=== PATIENT | female | born 1950 | race Caucasian/White ===

== ENCOUNTER 2018-05-20 02:46 | Inpatient (IN) | payer MEDICARE, MEDICAID ==
[2018-05-20 03:46] LABS: ALT (SGPT) 28 U/L (8-55); AST (SGOT) 33 U/L (5-34); Albumin 4.1 g/dL (3.4-4.8); Alkaline Phosphatase 76 U/L (40-150); Anion Gap 20 mmol/L (10-20); BUN (Urea Nitrogen) 16 mg/dL (9.8-20.1); Bilirubin, Total 0.8 mg/dL (0.2-1.2); Calc. Creatinine Clearance 0 mL/min (70-130); Calcium 10.1 mg/dL (7.8-10.44); Carbon Dioxide 21 mmol/L (23-31); Chloride 98 mmol/L (98-107); Estimated GFR-MDRD 42; Globulin 3.5 g/dL (2.4-3.5); Glucose 270 mg/dL (80-115); Potassium 4.2 mmol/L (3.5-5.1); Protein, Total 7.6 g/dL (6.0-8.3); Sodium 135 mmol/L (136-145)
[2018-05-20 03:48] LABS: Hemoglobin 14.8 g/dL (12.0-16.0); Mean Corpuscular HGB CONC 32.3 g/dL (32.0-36.0); Mean Corpuscular Hemoglobin 29.1 pg (27.0-31.0); Mean Corpuscular Volume 90.2 fL (78.0-98.0); Mean Platelet Volume 7.9 fL (7.4-10.4); Platelet Count 263 thou/uL (130-400); RBC Distribution Width 12.4 % (11.5-14.5); White Blood Cell (WBC) Count 19.6 thou/uL (4.8-10.8)
[2018-05-20] MEDS ORDERED: Piperacillin/Tazobactam 4.5 GM VIAL ONE (03:52)
[2018-05-20 03:57] LABS: Bilirubin Negative (Negative); Blood, Urine Large (Negative); Clarity CLOUDY (Clear); Glucose, Urine (Dipstick) Negative (Negative); Leukocyte Small (Negative); Nitrite Positive (Negative); Protein, Urine (Dipstick) 100 mg/dL (Neg-Trace); Specific Gravity, Urine 1.025 (1.002-1.036); pH, Urine 5.5 (5.0-9.0)
[2018-05-20 03:59] LABS: Bacteria/HPF 4+ HPF (None Seen); RBC/HPF GREATER THAN 50-TNTC HPF (0-3)
[2018-05-20 04:00] LABS: Pathc Cast-AUWi Flag 5.78 (0-2.49)
[2018-05-20 04:03] LABS: Hyaline Casts/LPF NONE SEEN LPF (0-3 Hyaline)
[2018-05-20 04:12] LABS: Band 13 % (5-11); Eosinophils 1 % (0-10); Lymphocytes 10 % (21-51); MDiff Complete? YES; Monocytes 2 % (0-10); Neutrophil 74 % (42-75)
[2018-05-20] MEDS ORDERED: Ketorolac Tromethamine 30 MG/ML VIAL ONE (04:19)
[2018-05-20] MEDS ORDERED: hydrALAZINE 20 MG/ML VIAL SLOW IVP PRN (05:43)
[2018-05-20] MEDS ORDERED: Ondansetron ODT 4 MG TAB PO PRN ×2 (05:43)
[2018-05-20] MEDS ORDERED: HumaLOG 300 UNITS/3 ML VIAL SC PRN (05:43)
[2018-05-20] MEDS ORDERED: Dextrose 5% in Water 1,000 ML IV PRN (05:43)
[2018-05-20] MEDS ORDERED: Acetaminophen 325 MG TAB PO PRN (05:43)
[2018-05-20] MEDS ORDERED: Ondansetron PF 4 MG/2 ML Vial IVP PRN ×3 (05:43→06:04)
[2018-05-20] MEDS ORDERED: Dextrose 50% Abboject 50 ML SYRINGE SLOW IVP PRN (05:43)
--- NOTE | 2018-05-20 06:49 | HP ---
PRIMARY CARE PHYSICIAN: Dr. Payne. CHIEF COMPLAINT: Fever and redness on the abdomen. HISTORY OF PRESENT ILLNESS: Ms. Laird is a pleasant 68-year-old female who has a history of hypertension, diabetes mellitus, and obesity. She says that about 2 days ago, she started running a low-grade temperature and then she noticed that an area on her abdomen started to get red and hot. She says that by Wednesday, she noticed that her temperature was starting to creep up. Then on , she noticed that her temperature got up to as high as 100.8 and then 102. She says that she is basically confined to her home due to her morbid obesity and difficulty getting out of her house and down her stairs. She says that she called her neighbors and they called EMS in order to bring her to the hospital. She also says that she has been having loose stools and just did not feel right and has been having poor appetite. When she was evaluated in the ER, she was found to have an elevated white blood cell count as well as fever and elevated lactic acid and is being admitted for panniculitis and also had urinary tract infection as well. The patient says that she last saw Dr. Payne about 2 years ago again because she is basically house confined. She says that her neighbors bring her food by her groceries for her, and she orders other essentials through the mail. REVIEW OF SYSTEMS: All systems were reviewed and are negative except for that mentioned in history of present illness. PAST MEDICAL HISTORY: Significant for hypertension, diabetes mellitus, hyperlipidemia, hypothyroidism, fibromyalgia, arthritis, and depression as well as morbid obesity. PAST SURGICAL HISTORY: She had a cholecystectomy in 1994 and then she says she developed severe ventral hernia following this. She also had a tonsillectomy in 1979. ALLERGIES: TO CYMBALTA, WHICH CAUSES HER LEG TO HURT AND ALSO LYRICA CAUSES HER FEET TO SWELL. SOCIAL HISTORY: She is a nonsmoker and nondrinker. She is single. She does not have any children. She currently lives alone. She used to live with her brother, but he recently and then also her sister recently . She says that she would not want to be resuscitated. She would like to be a DNAR. FAMILY HISTORY: Significant for brother who of heart attack, coronary artery disease. He also had end-stage renal disease, on dialysis. Her sister had a pacemaker, a defibrillator, and other heart disease. CURRENT MEDICATIONS: Her current medications are taken from the emergency room records include; 1. Amlodipine 5 mg once a day. 2. Aspirin 81 mg daily. 3. Losartan/hydrochlorothiazide 100/12.5 mg daily. 4. Metformin 1000 mg twice a day. 5. Potassium chloride 10 mEq twice a day. 6. Glipizide 5 mg daily. 7. Hydralazine 10 mg twice a day. 8. Levothyroxine 175 mcg once daily. 9. Crestor 40 mg once a day. 10. Ranitidine 150 mg daily. 11. Glucosamine complex one tablet daily. 12. Levemir 10 units once a day. 13. Acetaminophen 650 mg as needed. PHYSICAL EXAMINATION: GENERAL: She is alert and oriented. She appears to be in no acute distress. She is morbidly obese. She has truncal obesity. She does have a chronic ill appearance. VITAL SIGNS: Blood pressure 157/83, heart rate 122, respiratory rate of 24, and temperature was 99.5. HEENT: Her pupils are equal, round, and reactive. Extraocular muscles are intact. Her sclerae anicteric. Throat, no erythema, no exudates. NECK: No adenopathy. No bruits. LUNGS: Clear to auscultation. No wheezing. No rales. CARDIOVASCULAR: She has normal S1, S2. There is no S3 or S4. No murmurs, clicks, or rubs. ABDOMEN: Obese. She has a large ventral hernia, which is reducible and a massive abdominal pannus. There is no rebound or guarding. EXTREMITIES: She has no edema. No joint effusions. SKIN AND INTEGUMENT: She has some dry, thick skin and scaly on her feet and is primarily on the first toe on the right foot and on the right side of the pannus. It is erythematous and warm, but there was no fluctuance or induration. LABORATORY DATA: Sodium is 135, potassium 4.2, chloride is 98, CO2 is 21, BUN of 16, creatinine 1.27, and glucose is 270. Lactic acid 6.1. White blood cell count is 19.6, hemoglobin 14.8, hematocrit is 46, and platelet count is 263. Urinalysis is significant for positive nitrites, large blood, too numerous to count wbc's, and 4+ bacteria. ASSESSMENT: This is a pleasant 68-year-old female who presents with erythema and redness of her abdomen and likely has a panniculitis with sepsis. She also has urinary tract infection as well. 1. Panniculitis. We will place her on IV antibiotics to cover both gram positive as well as gram-negative organisms. Blood cultures have been done in the ER and we will need to follow this clinically. We will ask the nursing staff to jared the area. 2. Urinary tract infection. Again, start empiric antibiotics and await culture results. 3. Diabetes mellitus. Resume her home medications as well as sliding scale. 4. Hypertension. Restart her antihypertensive medications. We will likely restart these for tomorrow. Allow for some fluid resuscitation and treat her with p.r.n. hydralazine in the interim and also consult case management for assistance. She may benefit from home health since she appears to be basically homebound and home confined and hopefully, this will help her with disease management. Job ID: [id number]
[2018-05-20 07:19] LABS: Lactic Acid 2.3 mmol/L (0.5-2.2)
[2018-05-20] MEDS ORDERED: Vancomycin HCl 1 GM in Premix Bag 1 BAG IVPB SCH (09:00)
[2018-05-20] MEDS ORDERED: Famotidine/PF 20 mg/2ml Vial ONE (09:11)
[2018-05-20] MEDS ORDERED: Enoxaparin Sodium 30 MG/0.3 ML SYRINGE ONE (09:11)
[2018-05-20] MEDS ORDERED: Acetaminophen 325 MG TAB ONE (10:23)
[2018-05-20 14:17] VITALS: BMI 57.9
[2018-05-20] MEDS: Piperacillin/Tazobactam 3.375 GM in Sodium Chloride 0.9% 100 ML IVPB SCH ×3 (14:41→21:12)
[2018-05-20] MEDS: Famotidine 20 MG TAB PO SCH ×2 (15:38→21:13)
[2018-05-20] MEDS: Enoxaparin Sodium 30 MG/0.3 ML SYRINGE SC SCH (15:38)
[2018-05-20] MEDS: Sodium Chloride 0.9% 1,000 ML IV SCH ×2 (15:39→21:23)
[2018-05-20] MEDS: HYDROcodone/Acetaminophen 5/325 mg Tablet PO PRN ×2 (16:48→21:13)
--- NOTE | 2018-05-20 16:50 | PDOC.EVN ---
Event Note - Event Note Event Note: pt seen and examined. chart reviewed. cont IV ABx. BP better. Ok for tele floor . CM consult for placement.Pt not safe to go home rest per HPI. will follow HD stable AM labs
[2018-05-21] MEDS: Piperacillin/Tazobactam 3.375 GM in Sodium Chloride 0.9% 100 ML IVPB SCH ×4 (05:36→23:46)
[2018-05-21 06:28] LABS: #Basophils 0.1 thou/uL (0.0-0.2); #Eosinphils 0.2 thou/uL (0.0-0.7); #Monocytes 0.8 thou/uL (0.11-0.59); #Neutrophils 8.2 thou/uL (1.40-6.50); %Basophils 0.5 % (0.0-1.0); %Lymphocytes 17.5 % (21.0-51.0); %Neutrophils 73.1 % (42.0-75.0); Hemoglobin 12.5 g/dL (12.0-16.0); Mean Corpuscular Hemoglobin 30.2 pg (27.0-31.0); Mean Corpuscular Volume 91.4 fL (78.0-98.0); Mean Platelet Volume 8.2 fL (7.4-10.4); Platelet Count 187 thou/uL (130-400); RBC Distribution Width 12.4 % (11.5-14.5); Red Blood Cell (RBC) Count 4.13 mill/uL (4.20-5.40); White Blood Cell (WBC) Count 11.3 thou/uL (4.8-10.8)
[2018-05-21 06:45] LABS: Anion Gap 11 mmol/L (10-20); BUN (Urea Nitrogen) 8 mg/dL (9.8-20.1); Calc. Creatinine Clearance 152 mL/min (70-130); Calcium 9.1 mg/dL (7.8-10.44); Carbon Dioxide 27 mmol/L (23-31); Chloride 103 mmol/L (98-107); Estimated GFR-MDRD 60; Glucose 186 mg/dL (80-115); Potassium 3.4 mmol/L (3.5-5.1); Sodium 138 mmol/L (136-145)
[2018-05-21] MEDS ORDERED: Amlodipine 5 MG TAB PO SCH (09:00)
[2018-05-21] MEDS: Famotidine 20 MG TAB PO SCH ×2 (09:12→21:05)
[2018-05-21] MEDS: Enoxaparin Sodium 30 MG/0.3 ML SYRINGE SC SCH (09:12)
[2018-05-21] MEDS: Aspirin 81 mg Enteric Coated Tablet PO SCH (09:12)
[2018-05-21] MEDS: HumaLOG 300 UNITS/3 ML VIAL SC PRN ×2 (13:36→18:16)
--- NOTE | 2018-05-21 16:41 | PDOC.PN ---
- Subjective Encounter Start Date: 05/21/18 Encounter Start Time: 16:39 Pt seen for followup re: panniculitis. Says she feels slightly better. - Objective Resuscitation Status - Order Detail: 05/20/18 05:22 Resuscitation Status Routine Resuscitation Status: DNAR: NO Resuscitation Discussed with: Discussed with the patient MAR Reviewed: Yes Vital Signs & Weight: Vital Signs (12 hours) Temp Pulse Pulse Resp BP BP BP 05/21/18 13:10 97.2 F L 63 18 151/76 H 05/21/18 10:27 86 168/81 H 151/76 H 05/21/18 09:12 88 05/21/18 07:42 98.4 F 88 18 140/67 05/21/18 05:00 99.5 F 94 18 123/61 Pulse Ox 05/21/18 13:10 94 L 05/21/18 10:27 05/21/18 09:12 05/21/18 07:42 95 05/21/18 05:00 92 L Weight Weight 360 lb I&O: 05/20/18 05/21/18 05/22/18 06:59 06:59 06:59 Intake Total 3290 Output Total 2950 925 Balance 340 -925 Result Diagrams: 05/21/18 05:51 05/21/18 05:51 Additional Labs: Accuchecks 05/21/18 05/21/18 05/20/18 11:01 05:42 20:55 POC Glucose 222 H 190 H 225 H 05/20/18 17:03 POC Glucose 196 H EKG Reviewed by me: Yes (Tele: NSR) Phys Exam - Physical Examination Morbid obesity HEENT: moist MMs, sclera anicteric, oral pharynx no lesions, 2+ tonsils Neck: no nodes, no JVD, supple, full ROM Respiratory: clear to auscultation bilateral Cardiovascular: RRR, no rub S1, s2 Gastrointestinal: soft, non-tender, positive bowel sounds distended, pannus Neurological: moves all 4 limbs Psychiatric: normal affect, A&O x 3 Deviation from normal: panniculitis Dx/Plan (1) Panniculitis Code(s): M79.3 - PANNICULITIS, UNSPECIFIED Status: Acute Comment: continue IV antibiotics as below, follow cultures (2) Hypokalemia Code(s): E87.6 - HYPOKALEMIA Status: Acute Comment: replace potassium (3) UTI (urinary tract infection) Status: Acute Comment: continue IV antibiotics as below for E. coli UTI, await sensitivities (4) Moderately severe depression Code(s): F32.2 - MAJOR DEPRESSV DISORD, SINGLE EPSD, SEV W/O PSYCH FEATURES Status: Chronic Comment: stable, continue Effexor (5) Hypothyroidism Code(s): E03.9 - HYPOTHYROIDISM, UNSPECIFIED Status: Chronic Comment: continue synthroid (6) DM2 (diabetes mellitus, type 2) Status: Chronic Comment: resume home meds, continue accuchecks and insulin sliding scale (7) Morbid obesity with BMI of 50.0-59.9, adult Code(s): E66.01 - MORBID (SEVERE) OBESITY DUE TO EXCESS CALORIES; Z68.43 - BODY MASS INDEX (BMI) 50-59.9, ADULT Status: Chronic - Plan continue antibiotics, PT/OT, out of bed/ambulate * . Review of Systems - Review of Systems Constitutional: negative: fever, chills, sweats, weakness, malaise Respiratory: negative: Cough, Shortness of Breath, SOB with Excertion, Pleuritic Pain, Wheezing Cardiovascular: negative: chest pain, palpitations, orthopnea, paroxysmal nocturnal dyspnea, edema, light headedness Gastrointestinal: negative: Nausea, Vomiting, Abdominal Pain, Diarrhea, Constipation, Melena, Hematochezia Skin: Rash. negative: Lesions, Jaime, Bruising - Medications/Allergies Allergies/Adverse Reactions: Allergies Allergy/AdvReac Type Severity Reaction Status Date / Time duloxetine [From Cymbalta] Allergy Verified 05/20/18 14:25 pregabalin [From Lyrica] Allergy Verified 05/20/18 14:25 Medications: Current Medications Acetaminophen (Tylenol) 650 mg PO Q4H PRN PRN Reason: Headache/Fever/Mild Pain (1-3) Hydrocodone Bitart/Acetaminophen (Manly 5/325) 1 tab PO Q4H PRN PRN Reason: Moderate Pain (4-6) Last Admin: 05/20/18 21:13 Dose: 1 tab Amlodipine Besylate (Norvasc) 5 mg PO DAILY [facility] Last Admin: 05/21/18 09:12 Dose: 5 mg Amlodipine Besylate (Norvasc) 5 mg PO DAILY [facility] Aspirin (Ecotrin) 81 mg PO DAILY [facility] Last Admin: 05/21/18 09:12 Dose: 81 mg Aspirin (Aspirin Chewable) 81 mg PO DAILY [facility] Dextrose/Water (Dextrose 50%) 25 gm SLOW IVP PRN PRN PRN Reason: Hypoglycemia Enoxaparin Sodium (Lovenox) 30 mg SC 0900 [facility] Last Admin: 05/21/18 09:12 Dose: 30 mg Famotidine (Pepcid) 20 mg PO BID [facility] Last Admin: 05/21/18 09:12 Dose: 20 mg Glipizide (Glucotrol) 10 mg PO BID [facility] Glucagon (Glucagon) 1 mg IM PRN PRN PRN Reason: Hypoglycemia Hydralazine HCl (Apresoline) 10 mg SLOW IVP Q4H PRN PRN Reason: SBP > 180 and HR < 70 Hydralazine HCl (Apresoline) 10 mg PO BID [facility] Dextrose/Water (D5w) 1,000 mls @ 0 mls/hr IV .Q0M PRN PRN Reason: Hypoglycemia Piperacillin Sod/Tazobactam (Sod 3.375 gm/ Sodium Chloride) 100 mls @ 200 mls/ hr IVPB Q6H [facility] Last Admin: 05/21/18 11:15 Dose: 100 mls Sodium Chloride (Normal Saline 0.9%) 1,000 mls @ 75 mls/hr IV .[id number] [facility] Last Admin: 05/20/18 21:23 Dose: 1,000 mls Vancomycin HCl 2 gm/ Sodium (Chloride) 500 mls @ 200 mls/hr IVPB 0400 [facility] Last Admin: 05/21/18 04:25 Dose: 500 mls Insulin Human Lispro (Humalog) 0 units SC .MODERATE SLIDING SC PRN PRN Reason: Moderate Correctional Scale Last Admin: 05/21/18 13:36 Dose: 4 unit Insulin Human Lispro (Humalog) 0 units SC .BEDTIME SLIDING SC PRN PRN Reason: Bedtime Correctional Scale Last Admin: 05/20/18 21:17 Dose: 2 unit Levothyroxine Sodium (Synthroid) 175 mcg PO DAILY [facility]) [facility] Miscellaneous Medication (Pharmacy To Dose) 0 each IVPB ASDIR PRN PRN Reason: Pharmacy to Dose VANCOMYCIN Non-Formulary Medication (Acetaminophen [Tylenol]) 650 mg PO Q6HR [facility] Non-Formulary Medication (Glucosamine/D3/Boswellia Patricia [Glucosamine Daily Complex Tab]) 2 each PO DAILY [facility] Non-Formulary Medication (Insulin Detemir [Levemir Flextouch]) 10 unit SQ HS [facility] Non-Formulary Medication (Losartan/Hydrochlorothiazide [Losartan-Hctz 100-12.5 Mg Tab]) 1 tablet PO DAILY [facility] Non-Formulary Medication (Potassium Chloride [Potassium Chloride]) 10 meq PO BID [facility] Non-Formulary Medication (Ranitidine Hcl [Ranitidine Hcl]) 150 mg PO BID [facility] Non-Formulary Medication (Rosuvastatin Calcium [Crestor]) 40 mg PO DAILY [facility] Non-Formulary Medication (Venlafaxine Hcl [Venlafaxine Hcl Er]) 150 mg PO DAILY [facility] Ondansetron HCl (Zofran Odt) 4 mg PO Q6H PRN PRN Reason: Nausea/Vomiting Ondansetron HCl (Zofran) 4 mg IVP Q6H PRN PRN Reason: Nausea/Vomiting Pneumococcal 13-Valent Conj Vacc (Prevnar) 0.5 ml IM .ONCE ONE Stop: 05/22/18 09:01 Venlafaxine HCl (Effexor Xr) 150 mg PO ONE [facility]
[2018-05-21] MEDS ORDERED: Potassium Chloride 20 MEQ TAB PO SCH (17:00)
[2018-05-21] MEDS ORDERED: Venlafaxine HCl XR 150 MG CAP PO SCH (17:00)
[2018-05-21] MEDS: Acetaminophen 325 MG TAB PO SCH ×2 (17:37→23:46)
[2018-05-21] MEDS: metFORMIN 500 MG TAB PO SCH (18:08)
[2018-05-21] MEDS: Sodium Chloride 0.9% 1,000 ML IV SCH ×2 (18:09→21:06)
[2018-05-21] MEDS ORDERED: Non-Formulary Item 1 EACH (Ranitidine Hcl [Ranitidine Hcl] 150 MG) PO SCH (21:00)
[2018-05-21] MEDS ORDERED: Non-Formulary Item 1 EACH (Insulin Detemir [Levemir Flextouch] 10 UNIT) SQ SCH (21:00)
[2018-05-21] MEDS: hydrALAZINE 10 MG TAB PO SCH (21:03)
[2018-05-21] MEDS: Insulin Glargine 10 UNITS in Pre-Filled Syringe 1 EACH SC SCH (21:21)
[2018-05-22] MEDS: Levothyroxine 175 MCG TAB PO SCH (05:02)
[2018-05-22] MEDS: Acetaminophen 325 MG TAB PO SCH ×3 (05:02→18:16)
[2018-05-22] MEDS: Piperacillin/Tazobactam 3.375 GM in Sodium Chloride 0.9% 100 ML IVPB SCH ×4 (05:03→23:18)
[2018-05-22] MEDS: Potassium Chloride 10 MEQ TAB PO SCH ×2 (08:33→16:42)
[2018-05-22] MEDS: metFORMIN 500 MG TAB PO SCH ×2 (08:33→16:42)
[2018-05-22] MEDS: glipiZIDE 10 MG TAB PO SCH ×2 (08:33→16:42)
[2018-05-22] MEDS: Amlodipine 5 MG TAB PO SCH (08:34)
[2018-05-22] MEDS: Enoxaparin Sodium 30 MG/0.3 ML SYRINGE SC SCH (08:34)
[2018-05-22] MEDS: Famotidine 20 MG TAB PO SCH ×2 (08:34→20:48)
[2018-05-22] MEDS: Aspirin 81 mg Enteric Coated Tablet PO SCH (08:34)
[2018-05-22] MEDS: Hydrochlorothiazide 25 MG TAB PO SCH (08:35)
[2018-05-22] MEDS: hydrALAZINE 10 MG TAB PO SCH ×2 (08:35→21:24)
[2018-05-22] MEDS: Losartan 25 MG TAB PO SCH (08:36)
[2018-05-22] MEDS: Venlafaxine HCl XR 150 MG CAP PO SCH (08:36)
[2018-05-22] MEDS ORDERED: Glucosamine/D3/Boswellia Serra [Glucosamine Daily Complex Tab] PO SCH (09:00)
[2018-05-22] MEDS ORDERED: Prevnar 13-Val Conj/PF 0.5 ML SYRINGE IM ONE (09:00)
[2018-05-22] MEDS ORDERED: Aspirin Chewable 81 MG TAB PO SCH (09:00)
[2018-05-22] MEDS ORDERED: Rosuvastatin 20 MG TAB PO SCH (09:00)
[2018-05-22] MEDS ORDERED: Non-Formulary Item 1 EACH (Losartan/Hydrochlorothiazide [Losartan-Hctz 100-12.5 Mg Tab] 1 PO SCH (09:00)
[2018-05-22] MEDS: Vancomycin HCl 1.5 GM in Sodium Chloride 0.9% 250 ML 300 ML IVPB SCH (12:47)
--- NOTE | 2018-05-22 13:44 | PDOC.PN ---
- Subjective Encounter Start Date: 05/22/18 Encounter Start Time: 08:40 Pt seen for followup re: panniculitis. feels better. - Objective Resuscitation Status - Order Detail: 05/20/18 05:22 Resuscitation Status Routine Resuscitation Status: DNAR: NO Resuscitation Discussed with: Discussed with the patient MAR Reviewed: Yes Vital Signs & Weight: Vital Signs (12 hours) Temp Pulse Resp BP BP Pulse Ox 05/22/18 11:24 98.4 F 81 19 147/70 H 96 05/22/18 08:35 97 138/70 05/22/18 08:34 97 138/70 05/22/18 08:27 98.5 F 97 18 138/70 95 05/22/18 03:37 98.2 F 83 18 146/71 H 96 Weight Weight 364 lb 8.929 oz I&O: 05/21/18 05/22/18 05/23/18 06:59 06:59 06:59 Intake Total 3290 1440 Output Total 2950 3125 Balance 340 -1685 Result Diagrams: 05/21/18 05:51 05/21/18 05:51 Additional Labs: Accuchecks 05/22/18 05/22/18 05/21/18 11:00 05:42 20:39 POC Glucose 232 H 156 H 241 H 05/21/18 16:54 POC Glucose 153 H EKG Reviewed by me: Yes (Tele: NSR) Phys Exam - Physical Examination Morbid obesity HEENT: moist MMs Neck: supple Respiratory: clear to auscultation bilateral Cardiovascular: RRR Gastrointestinal: soft Neurological: moves all 4 limbs Psychiatric: normal affect Deviation from normal: panniculitis improving Dx/Plan (1) Panniculitis Code(s): M79.3 - PANNICULITIS, UNSPECIFIED Status: Acute Comment: Improving , continue IV antibiotics as below (2) UTI (urinary tract infection) Status: Acute Comment: continue IV antibiotics as below for pansensitive E. coli UTI (3) Hypokalemia Code(s): E87.6 - HYPOKALEMIA Status: Acute Comment: check AM labs (4) Moderately severe depression Code(s): F32.2 - MAJOR DEPRESSV DISORD, SINGLE EPSD, SEV W/O PSYCH FEATURES Status: Chronic Comment: stable, on Effexor (5) Hypothyroidism Code(s): E03.9 - HYPOTHYROIDISM, UNSPECIFIED Status: Chronic Comment: on synthroid (6) DM2 (diabetes mellitus, type 2) Status: Chronic Comment: continue accuchecks and insulin sliding scale (7) Morbid obesity with BMI of 50.0-59.9, adult Code(s): E66.01 - MORBID (SEVERE) OBESITY DUE TO EXCESS CALORIES; Z68.43 - BODY MASS INDEX (BMI) 50-59.9, ADULT Status: Chronic - Plan * . Review of Systems - Review of Systems Respiratory: negative: Cough, Shortness of Breath, SOB with Excertion, Pleuritic Pain, Wheezing Cardiovascular: negative: chest pain, palpitations, orthopnea, paroxysmal nocturnal dyspnea, edema, light headedness - Medications/Allergies Allergies/Adverse Reactions: Allergies Allergy/AdvReac Type Severity Reaction Status Date / Time duloxetine [From Cymbalta] Allergy Verified 05/20/18 14:25 pregabalin [From Lyrica] Allergy Verified 05/20/18 14:25 Medications: Current Medications Acetaminophen (Tylenol) 650 mg PO Q4H PRN PRN Reason: Headache/Fever/Mild Pain (1-3) Acetaminophen (Tylenol) 650 mg PO Q6HR [facility] Last Admin: 05/22/18 13:08 Dose: 650 mg Hydrocodone Bitart/Acetaminophen ([place]win 5/325) 1 tab PO Q4H PRN PRN Reason: Moderate Pain (4-6) Last Admin: 05/20/18 21:13 Dose: 1 tab Amlodipine Besylate (Norvasc) 5 mg PO DAILY [facility] Last Admin: 05/22/18 08:34 Dose: 5 mg Aspirin (Ecotrin) 81 mg PO DAILY [facility] Last Admin: 05/22/18 08:34 Dose: 81 mg Dextrose/Water (Dextrose 50%) 25 gm SLOW IVP PRN PRN PRN Reason: Hypoglycemia Enoxaparin Sodium (Lovenox) 30 mg SC 0900 [facility] Last Admin: 05/22/18 08:34 Dose: 30 mg Famotidine (Pepcid) 20 mg PO BID [facility] Last Admin: 05/22/18 08:34 Dose: 20 mg Glipizide (Glucotrol) 10 mg PO BID-AC [facility] Last Admin: 05/22/18 08:33 Dose: 10 mg Glucagon (Glucagon) 1 mg IM PRN PRN PRN Reason: Hypoglycemia Hydralazine HCl (Apresoline) 10 mg SLOW IVP Q4H PRN PRN Reason: SBP > 180 and HR < 70 Hydralazine HCl (Apresoline) 10 mg PO BID [facility] Last Admin: 05/22/18 08:35 Dose: 10 mg Hydrochlorothiazide (Hydrochlorothiazide) 12.5 mg PO DAILY [facility] Last Admin: 05/22/18 08:35 Dose: 12.5 mg Dextrose/Water (D5w) 1,000 mls @ 0 mls/hr IV .Q0M PRN PRN Reason: Hypoglycemia Piperacillin Sod/Tazobactam (Sod 3.375 gm/ Sodium Chloride) 100 mls @ 200 mls/ hr IVPB Q6H [facility] Last Admin: 05/22/18 11:19 Dose: 100 mls Sodium Chloride (Normal Saline 0.9%) 1,000 mls @ 75 mls/hr IV .[id number] [facility] Last Admin: 05/21/18 21:06 Dose: 1,000 mls Insulin Glargine 10 units/ (Miscellaneous Medication) 0.1 mls @ 0 mls/hr SC HS [facility] Last Admin: 05/21/18 21:21 Dose: 0.1 mls Vancomycin HCl 1.5 gm/ Sodium (Chloride) 300 mls @ 200 mls/hr IVPB 1200,2359 [facility] Last Admin: 05/22/18 12:47 Dose: 300 mls Insulin Human Lispro (Humalog) 0 units SC .MODERATE SLIDING SC PRN PRN Reason: Moderate Correctional Scale Last Admin: 05/21/18 18:16 Dose: 2 unit Insulin Human Lispro (Humalog) 0 units SC .BEDTIME SLIDING SC PRN PRN Reason: Bedtime Correctional Scale Last Admin: 05/20/18 21:17 Dose: 2 unit Levothyroxine Sodium (Synthroid) 175 mcg PO 0600 [facility] Last Admin: 05/22/18 05:02 Dose: 175 mcg Losartan Potassium (Cozaar) 100 mg PO DAILY [facility] Last Admin: 05/22/18 08:36 Dose: 100 mg Metformin HCl (Glucophage) 1,000 mg PO BID[facility] Last Admin: 05/22/18 08:33 Dose: 1,000 mg Miscellaneous Medication (Pharmacy To Dose) 0 each IVPB ASDIR PRN PRN Reason: Pharmacy to Dose VANCOMYCIN Ondansetron HCl (Zofran Odt) 4 mg PO Q6H PRN PRN Reason: Nausea/Vomiting Ondansetron HCl (Zofran) 4 mg IVP Q6H PRN PRN Reason: Nausea/Vomiting Potassium Chloride (Klor-Con 10) 10 meq PO BID-[facility] Last Admin: 05/22/18 08:33 Dose: 10 meq Rosuvastatin Calcium (Crestor) 40 mg PO DAILY [facility] Last Admin: 05/22/18 08:36 Dose: Not Given Venlafaxine HCl (Effexor Xr) 150 mg PO DAILY [facility] Last Admin: 05/22/18 08:36 Dose: 150 mg
[2018-05-22] MEDS: Sodium Chloride 0.9% 1,000 ML IV SCH (16:43)
[2018-05-22] MEDS: HumaLOG 300 UNITS/3 ML VIAL SC PRN (16:44)
[2018-05-22] MEDS: Rosuvastatin 20 MG TAB PO SCH (20:48)
[2018-05-22] MEDS: HYDROcodone/Acetaminophen 5/325 mg Tablet PO PRN (20:49)
[2018-05-22] MEDS: Insulin Glargine 10 UNITS in Pre-Filled Syringe 1 EACH SC SCH (21:27)
[2018-05-23] MEDS: Acetaminophen 325 MG TAB PO SCH ×5 (00:46→23:45)
[2018-05-23] MEDS: Vancomycin HCl 1.5 GM in Sodium Chloride 0.9% 250 ML 300 ML IVPB SCH ×2 (01:15→12:10)
[2018-05-23] MEDS: Piperacillin/Tazobactam 3.375 GM in Sodium Chloride 0.9% 100 ML IVPB SCH ×4 (04:47→23:45)
[2018-05-23] MEDS: Levothyroxine 175 MCG TAB PO SCH (05:48)
[2018-05-23 07:39] LABS: #Basophils 0.1 thou/uL (0.0-0.2); #Eosinphils 0.2 thou/uL (0.0-0.7); #Lymphocytes 1.3 thou/uL (1.20-3.40); #Monocytes 0.5 thou/uL (0.11-0.59); #Neutrophils 3.2 thou/uL (1.40-6.50); %Basophils 1.7 % (0.0-1.0); %Eosinophils 4.3 % (0.0-10.0); %Lymphocytes 24.3 % (21.0-51.0); %Monocytes 9.1 % (0.0-10.0); %Neutrophils 60.7 % (42.0-75.0); Hemoglobin 12.4 g/dL (12.0-16.0); Mean Corpuscular HGB CONC 32.7 g/dL (32.0-36.0); Mean Corpuscular Hemoglobin 29.7 pg (27.0-31.0); Mean Corpuscular Volume 90.8 fL (78.0-98.0); Mean Platelet Volume 7.5 fL (7.4-10.4); Platelet Count 216 thou/uL (130-400); RBC Distribution Width 12.1 % (11.5-14.5); Red Blood Cell (RBC) Count 4.16 mill/uL (4.20-5.40); White Blood Cell (WBC) Count 5.3 thou/uL (4.8-10.8)
[2018-05-23 07:53] LABS: Anion Gap 13 mmol/L (10-20); BUN (Urea Nitrogen) 9 mg/dL (9.8-20.1); Calc. Creatinine Clearance 168 mL/min (70-130); Calcium 9.1 mg/dL (7.8-10.44); Carbon Dioxide 28 mmol/L (23-31); Chloride 101 mmol/L (98-107); Estimated GFR-MDRD 66; Glucose 140 mg/dL (80-115); Potassium 3.8 mmol/L (3.5-5.1); Sodium 138 mmol/L (136-145)
[2018-05-23] MEDS: metFORMIN 500 MG TAB PO SCH ×2 (09:02→17:11)
[2018-05-23] MEDS: Amlodipine 5 MG TAB PO SCH (09:02)
[2018-05-23] MEDS: Famotidine 20 MG TAB PO SCH ×2 (09:02→20:23)
[2018-05-23] MEDS: glipiZIDE 10 MG TAB PO SCH ×2 (09:03→17:10)
[2018-05-23] MEDS: Venlafaxine HCl XR 150 MG CAP PO SCH (09:03)
[2018-05-23] MEDS: Hydrochlorothiazide 25 MG TAB PO SCH (09:03)
[2018-05-23] MEDS: Losartan 25 MG TAB PO SCH (09:04)
[2018-05-23] MEDS: Potassium Chloride 10 MEQ TAB PO SCH ×2 (09:04→17:10)
[2018-05-23] MEDS: Aspirin 81 mg Enteric Coated Tablet PO SCH (09:05)
[2018-05-23] MEDS: Enoxaparin Sodium 30 MG/0.3 ML SYRINGE SC SCH (09:05)
[2018-05-23] MEDS: Sodium Chloride 0.9% 1,000 ML IV SCH ×3 (10:25→21:47)
[2018-05-23] MEDS: HumaLOG 300 UNITS/3 ML VIAL SC PRN (13:10)
[2018-05-23] MEDS: hydrALAZINE 10 MG TAB PO SCH ×2 (13:22→20:24)
--- NOTE | 2018-05-23 14:42 | PQF ---
CLINICAL DOCUMENTATION IMPROVEMENT CLARIFICATION FORM: ICD-10 Updated PLEASE DO AN ADDENDUM TO THE PROGRESS NOTE WITH ANY DOCUMENTATION UPDATES OR ADDITIONS AND CARRY THROUGH TO DC SUMMARY. THANK YOU. DATE: 05/23/18 ATTN: DR. ELKINS Please exercise your independent, professional judgment in responding to the clarification form. Clinical indicators are provided on the bottom of this form for your review Please check appropriate box(es): [ ] Sepsis due to: (Pna, UTI, gangrenous gall bladder, etc.) Due to: [ ] Device (please specify) [ ] Implant [ ] Graft [ ] Infusion [ ] SIRS due to non-infectious process (please specify etiology) [ ] with organ dysfunction [ ] without organ dysfunction [ ] Severe sepsis with acute organ dysfunction of: (Examples: respiratory failure, encephalopathy, acute kidney failure, other) [ ] Septic Shock [ ] Localized infection without sepsis [ ] Other diagnosis [ ] Unable to determine In addition, please specify: Present on Admission (POA): [ ] Yes [ ] No [ ] Unable to determine For continuity of documentation, please document condition throughout progress notes and discharge summary. Thank You. CLINICAL INDICATORS - SIGNS / SYMPTOMS / LABS PULSE 122 RR 25 100.2 CRITICORE TEMP (ER NOTE) H&P: TEMP 102 WBC 19.6 (05/20) BANDS 13 RISKS: PANNICULITIS UTI TREATMENT: IV ZOSYN (ER-PRESENT) IV VANCOMYCIN (ER-PRESENT) IV FLUIDS (ER-PRESENT) SERIAL LABS BLOOD AND URINE CULTURES (This form is maintained as a part of the permanent medical record) 2014 [employer]. All Rights Reserved [email or web address] [email or web address] Office: [phone] [email or web address]
--- NOTE | 2018-05-23 15:26 | PDOC.PN ---
- Subjective Encounter Start Date: 05/23/18 Encounter Start Time: 08:20 Pt seen for followup re: panniculitis. Feels better. - Objective Resuscitation Status - Order Detail: 05/20/18 05:22 Resuscitation Status Routine Resuscitation Status: DNAR: NO Resuscitation Discussed with: Discussed with the patient Vital Signs & Weight: Vital Signs (12 hours) Temp Pulse Resp BP BP Pulse Ox 05/23/18 13:22 72 171/90 H 05/23/18 09:12 96 05/23/18 09:06 96 05/23/18 09:02 72 123/77 05/23/18 08:00 98.2 F 72 20 123/77 93 L 05/23/18 04:45 24 H Weight Weight 364 lb 8.929 oz I&O: 05/22/18 05/23/18 05/24/18 06:59 06:59 06:59 Intake Total 1440 2240 Output Total 3125 3200 Balance -1685 -960 Result Diagrams: 05/23/18 06:31 05/23/18 06:31 Additional Labs: Accuchecks 05/23/18 05/23/18 05/22/18 11:00 04:01 20:19 POC Glucose 190 H 126 H 141 H 05/22/18 16:41 POC Glucose 160 H Phys Exam - Physical Examination Morbidly obese HEENT: moist MMs Neck: supple Respiratory: clear to auscultation bilateral Cardiovascular: RRR Gastrointestinal: soft Musculoskeletal: no edema Neurological: moves all 4 limbs Psychiatric: normal affect Deviation from normal: panniculitis improving Dx/Plan (1) Panniculitis Code(s): M79.3 - PANNICULITIS, UNSPECIFIED Status: Acute Comment: Improving , continue IV Zosyn, switch to oral antibiotics at the time of discharge (2) UTI (urinary tract infection) Status: Acute Comment: continue IV Zosyn for now (3) Moderately severe depression Code(s): 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 Review of Systems - Review of Systems Respiratory: negative: Cough, Shortness of Breath, SOB with Excertion, Pleuritic Pain, Wheezing Cardiovascular: negative: chest pain, palpitations, orthopnea, paroxysmal nocturnal dyspnea, edema, light headedness Skin: Rash - Medications/Allergies Allergies/Adverse Reactions: Allergies Allergy/AdvReac Type Severity Reaction Status Date / Time duloxetine [From Cymbalta] Allergy Verified 05/20/18 14:25 pregabalin [From Lyrica] Allergy Verified 05/20/18 14:25 Medications: Current Medications Acetaminophen (Tylenol) 650 mg PO Q4H PRN PRN Reason: Headache/Fever/Mild Pain (1-3) Acetaminophen (Tylenol) 650 mg PO Q6HR [facility] Last Admin: 05/23/18 13:10 Dose: 650 mg Hydrocodone Bitart/Acetaminophen ([place] 5/325) 1 tab PO Q4H PRN PRN Reason: Moderate Pain (4-6) Last Admin: 05/22/18 20:49 Dose: 1 tab Amlodipine Besylate (Norvasc) 5 mg PO DAILY [facility] Last Admin: 05/23/18 09:02 Dose: 5 mg Aspirin (Ecotrin) 81 mg PO DAILY [facility] Last Admin: 05/23/18 09:05 Dose: 81 mg Dextrose/Water (Dextrose 50%) 25 gm SLOW IVP PRN PRN PRN Reason: Hypoglycemia Enoxaparin Sodium (Lovenox) 30 mg SC 0900 [facility] Last Admin: 05/23/18 09:05 Dose: 30 mg Famotidine (Pepcid) 20 mg PO BID [facility] Last Admin: 05/23/18 09:02 Dose: 20 mg Glipizide (Glucotrol) 10 mg PO BID-AC [facility] Last Admin: 05/23/18 09:03 Dose: 10 mg Glucagon (Glucagon) 1 mg IM PRN PRN PRN Reason: Hypoglycemia Hydralazine HCl (Apresoline) 10 mg SLOW IVP Q4H PRN PRN Reason: SBP > 180 and HR < 70 Hydralazine HCl (Apresoline) 10 mg PO BID [facility] Last Admin: 05/23/18 13:22 Dose: 10 mg Hydrochlorothiazide (Hydrochlorothiazide) 12.5 mg PO DAILY [facility] Last Admin: 05/23/18 09:03 Dose: 12.5 mg Dextrose/Water (D5w) 1,000 mls @ 0 mls/hr IV .Q0M PRN PRN Reason: Hypoglycemia Piperacillin Sod/Tazobactam (Sod 3.375 gm/ Sodium Chloride) 100 mls @ 200 mls/ hr IVPB Q6H [facility] Last Admin: 05/23/18 10:25 Dose: 100 mls Sodium Chloride (Normal Saline 0.9%) 1,000 mls @ 75 mls/hr IV .[id number] [facility] Last Admin: 05/23/18 10:25 Dose: 1,000 mls Insulin Glargine 10 units/ (Miscellaneous Medication) 0.1 mls @ 0 mls/hr SC HS [facility] Last Admin: 05/22/18 21:27 Dose: 0.1 mls Vancomycin HCl 1.5 gm/ Sodium (Chloride) 300 mls @ 200 mls/hr IVPB 1200,2359 [facility] Last Admin: 05/23/18 12:10 Dose: 300 mls Insulin Human Lispro (Humalog) 0 units SC .MODERATE SLIDING SC PRN PRN Reason: Moderate Correctional Scale Last Admin: 05/23/18 13:10 Dose: 2 unit Insulin Human Lispro (Humalog) 0 units SC .BEDTIME SLIDING SC PRN PRN Reason: Bedtime Correctional Scale Last Admin: 05/20/18 21:17 Dose: 2 unit Levothyroxine Sodium (Synthroid) 175 mcg PO 0600 [facility] Last Admin: 05/23/18 05:48 Dose: 175 mcg Losartan Potassium (Cozaar) 100 mg PO DAILY [facility] Last Admin: 05/23/18 09:04 Dose: 100 mg Metformin HCl (Glucophage) 1,000 mg PO BID-[facility] Last Admin: 05/23/18 09:02 Dose: 1,000 mg Miscellaneous Medication (Pharmacy To Dose) 0 each IVPB ASDIR PRN PRN Reason: Pharmacy to Dose VANCOMYCIN Ondansetron HCl (Zofran Odt) 4 mg PO Q6H PRN PRN Reason: Nausea/Vomiting Ondansetron HCl (Zofran) 4 mg IVP Q6H PRN PRN Reason: Nausea/Vomiting Potassium Chloride (Klor-Con 10) 10 meq PO BID-[facility] Last Admin: 05/23/18 09:04 Dose: 10 meq Rosuvastatin Calcium (Crestor) 40 mg PO [facility] Last Admin: 05/22/18 20:48 Dose: 40 mg Venlafaxine HCl (Effexor Xr) 150 mg PO DAILY [facility] Last Admin: 05/23/18 09:03 Dose: 150 mg
[2018-05-23] MEDS: Insulin Glargine 10 UNITS in Pre-Filled Syringe 1 EACH SC SCH (20:26)
[2018-05-23] MEDS: Rosuvastatin 20 MG TAB PO SCH (20:26)
[2018-05-23] MEDS: HYDROcodone/Acetaminophen 5/325 mg Tablet PO PRN (21:49)
[2018-05-23 23:28] LABS: Vancomycin, Trough 19.3 ug/mL
[2018-05-24] MEDS: Vancomycin HCl 1.5 GM in Sodium Chloride 0.9% 250 ML 300 ML IVPB SCH ×2 (01:45→10:29)
[2018-05-24] MEDS: Acetaminophen 325 MG TAB PO SCH ×3 (05:21→17:55)
[2018-05-24] MEDS: Levothyroxine 175 MCG TAB PO SCH (05:21)
[2018-05-24] MEDS: Piperacillin/Tazobactam 3.375 GM in Sodium Chloride 0.9% 100 ML IVPB SCH ×3 (05:22→15:50)
[2018-05-24 07:58] LABS: #Eosinphils 0.3 thou/uL (0.0-0.7); #Lymphocytes 1.4 thou/uL (1.20-3.40); #Monocytes 0.5 thou/uL (0.11-0.59); #Neutrophils 2.2 thou/uL (1.40-6.50); %Basophils 0.9 % (0.0-1.0); %Eosinophils 5.9 % (0.0-10.0); %Lymphocytes 31.2 % (21.0-51.0); %Monocytes 11.9 % (0.0-10.0); %Neutrophils 50.2 % (42.0-75.0); Hemoglobin 12.6 g/dL (12.0-16.0); Mean Corpuscular HGB CONC 32.5 g/dL (32.0-36.0); Mean Corpuscular Hemoglobin 29.5 pg (27.0-31.0); Mean Corpuscular Volume 90.8 fL (78.0-98.0); Mean Platelet Volume 7.4 fL (7.4-10.4); Platelet Count 237 thou/uL (130-400); Red Blood Cell (RBC) Count 4.28 mill/uL (4.20-5.40); White Blood Cell (WBC) Count 4.3 thou/uL (4.8-10.8)
[2018-05-24 08:13] LABS: Anion Gap 14 mmol/L (10-20); BUN (Urea Nitrogen) 12 mg/dL (9.8-20.1); Calc. Creatinine Clearance 144 mL/min (70-130); Calcium 9.4 mg/dL (7.8-10.44); Carbon Dioxide 27 mmol/L (23-31); Chloride 102 mmol/L (98-107); Estimated GFR-MDRD 58; Glucose 142 mg/dL (80-115); Potassium 3.8 mmol/L (3.5-5.1); Sodium 139 mmol/L (136-145)
[2018-05-24] MEDS: Aspirin 81 mg Enteric Coated Tablet PO SCH (09:13)
[2018-05-24] MEDS: glipiZIDE 10 MG TAB PO SCH ×2 (09:13→15:51)
[2018-05-24] MEDS: Potassium Chloride 10 MEQ TAB PO SCH ×2 (09:13→15:51)
[2018-05-24] MEDS: metFORMIN 500 MG TAB PO SCH ×2 (09:13→15:51)
[2018-05-24] MEDS: Hydrochlorothiazide 25 MG TAB PO SCH (09:13)
[2018-05-24] MEDS: Venlafaxine HCl XR 150 MG CAP PO SCH (09:13)
[2018-05-24] MEDS: Amlodipine 5 MG TAB PO SCH (09:14)
[2018-05-24] MEDS: Losartan 25 MG TAB PO SCH (09:14)
[2018-05-24] MEDS: Enoxaparin Sodium 30 MG/0.3 ML SYRINGE SC SCH (09:14)
[2018-05-24] MEDS: Famotidine 20 MG TAB PO SCH ×2 (09:14→19:51)
[2018-05-24] MEDS: hydrALAZINE 10 MG TAB PO SCH ×2 (10:28→19:51)
--- NOTE | 2018-05-24 15:52 | PDOC.PN ---
- Subjective Encounter Start Date: 05/24/18 Encounter Start Time: 15:50 Pt seen for followup re: panniculitis. Feels better, no fevers. - Objective Resuscitation Status - Order Detail: 05/20/18 05:22 Resuscitation Status Routine Resuscitation Status: DNAR: NO Resuscitation Discussed with: Discussed with the patient Vital Signs & Weight: Vital Signs (12 hours) Temp Pulse Resp BP Pulse Ox 05/24/18 11:00 98.5 F 74 20 150/82 H 94 L 05/24/18 10:28 88 05/24/18 09:14 88 05/24/18 08:00 98.3 F 88 20 143/75 H 92 L Weight Weight 349 lb 1.6 oz I&O: 05/23/18 05/24/18 05/25/18 06:59 06:59 06:59 Intake Total 2240 3609 400 Output Total 3200 5050 1000 Balance -960 -1441 -600 Result Diagrams: 05/24/18 07:29 05/24/18 07:29 Additional Labs: Accuchecks 05/24/18 05/24/18 05/23/18 11:38 05:22 20:26 POC Glucose 139 H 140 H 162 H 05/23/18 16:17 POC Glucose 150 H Phys Exam - Physical Examination Morbid obesity HEENT: sclera anicteric Neck: no JVD Respiratory: clear to auscultation bilateral Cardiovascular: no rub Gastrointestinal: soft distention Neurological: moves all 4 limbs Psychiatric: normal affect Deviation from normal: panniculitis improved Dx/Plan (1) Panniculitis Code(s): M79.3 - PANNICULITIS, UNSPECIFIED Status: Acute Comment: Improving , continue IV Zosyn (2) UTI (urinary tract infection) Status: Acute Comment: continue IV Zosyn (3) Moderately severe depression Code(s): F32.2 - MAJOR DEPRESSV DISORD, SINGLE EPSD, SEV W/O PSYCH FEATURES Status: Chronic Comment: stable (4) Hypothyroidism Code(s): E03.9 - HYPOTHYROIDISM, UNSPECIFIED Status: Chronic Comment: stable (5) DM2 (diabetes mellitus, type 2) Status: Chronic Comment: continue accuchecks and insulin sliding scale (6) Morbid obesity with BMI of 50.0-59.9, adult Code(s): E66.01 - MORBID (SEVERE) OBESITY DUE TO EXCESS CALORIES; Z68.43 - BODY MASS INDEX (BMI) 50-59.9, ADULT Status: Chronic (7) Hypokalemia Code(s): E87.6 - HYPOKALEMIA Status: Resolved (8) Sepsis Code(s): A41.9 - SEPSIS, UNSPECIFIED ORGANISM Status: Resolved Comment: due to UTI, present on admission - Plan continue antibiotics, out of bed/ambulate * . Pt wants to go to [facility] Review of Systems - Review of Systems Respiratory: negative: Cough, Shortness of Breath, SOB with Excertion, Pleuritic Pain, Wheezing Cardiovascular: negative: chest pain, palpitations, orthopnea, paroxysmal nocturnal dyspnea, edema, light headedness Skin: Rash - Medications/Allergies Allergies/Adverse Reactions: Allergies Allergy/AdvReac Type Severity Reaction Status Date / Time duloxetine [From Cymbalta] Allergy Verified 05/20/18 14:25 pregabalin [From Lyrica] Allergy Verified 05/20/18 14:25 Medications: Current Medications Acetaminophen (Tylenol) 650 mg PO Q4H PRN PRN Reason: Headache/Fever/Mild Pain (1-3) Acetaminophen (Tylenol) 650 mg PO Q6HR [facility] Last Admin: 05/24/18 10:29 Dose: 650 mg Hydrocodone Bitart/Acetaminophen ([place] 5/325) 1 tab PO Q4H PRN PRN Reason: Moderate Pain (4-6) Last Admin: 05/23/18 21:49 Dose: 1 tab Amlodipine Besylate (Norvasc) 5 mg PO DAILY [facility] Last Admin: 05/24/18 09:14 Dose: 5 mg Aspirin (Ecotrin) 81 mg PO DAILY [facility] Last Admin: 05/24/18 09:13 Dose: 81 mg Dextrose/Water (Dextrose 50%) 25 gm SLOW IVP PRN PRN PRN Reason: Hypoglycemia Enoxaparin Sodium (Lovenox) 30 mg SC 0900 [facility] Last Admin: 05/24/18 09:14 Dose: 30 mg Famotidine (Pepcid) 20 mg PO BID [facility] Last Admin: 05/24/18 09:14 Dose: 20 mg Glipizide (Glucotrol) 10 mg PO BID-AC [facility] Last Admin: 05/24/18 09:13 Dose: 10 mg Glucagon (Glucagon) 1 mg IM PRN PRN PRN Reason: Hypoglycemia Hydralazine HCl (Apresoline) 10 mg SLOW IVP Q4H PRN PRN Reason: SBP > 180 and HR < 70 Hydralazine HCl (Apresoline) 10 mg PO BID [facility] Last Admin: 05/24/18 10:28 Dose: 10 mg Hydrochlorothiazide (Hydrochlorothiazide) 12.5 mg PO DAILY [facility] Last Admin: 05/24/18 09:13 Dose: 12.5 mg Dextrose/Water (D5w) 1,000 mls @ 0 mls/hr IV .Q0M PRN PRN Reason: Hypoglycemia Piperacillin Sod/Tazobactam (Sod 3.375 gm/ Sodium Chloride) 100 mls @ 200 mls/ hr IVPB Q6H [facility] Last Admin: 05/24/18 10:28 Dose: 100 mls Sodium Chloride (Normal Saline 0.9%) 1,000 mls @ 75 mls/hr IV .[id number] [facility] Last Admin: 05/23/18 21:47 Dose: 1,000 mls Insulin Glargine 10 units/ (Miscellaneous Medication) 0.1 mls @ 0 mls/hr SC HS [facility] Last Admin: 05/23/18 20:26 Dose: 0.1 mls Vancomycin HCl 1.5 gm/ Sodium (Chloride) 300 mls @ 200 mls/hr IVPB 1200,2359 [facility] Last Admin: 05/24/18 10:29 Dose: 300 mls Insulin Human Lispro (Humalog) 0 units SC .MODERATE SLIDING SC PRN PRN Reason: Moderate Correctional Scale Last Admin: 05/23/18 13:10 Dose: 2 unit Insulin Human Lispro (Humalog) 0 units SC .BEDTIME SLIDING SC PRN PRN Reason: Bedtime Correctional Scale Last Admin: 05/20/18 21:17 Dose: 2 unit Levothyroxine Sodium (Synthroid) 175 mcg PO 0600 [facility] Last Admin: 05/24/18 05:21 Dose: 175 mcg Losartan Potassium (Cozaar) 100 mg PO DAILY [facility] Last Admin: 05/24/18 09:14 Dose: 100 mg Metformin HCl (Glucophage) 1,000 mg PO BID-[facility] Last Admin: 05/24/18 09:13 Dose: 1,000 mg Miscellaneous Medication (Pharmacy To Dose) 0 each IVPB ASDIR PRN PRN Reason: Pharmacy to Dose VANCOMYCIN Ondansetron HCl (Zofran Odt) 4 mg PO Q6H PRN PRN Reason: Nausea/Vomiting Ondansetron HCl (Zofran) 4 mg IVP Q6H PRN PRN Reason: Nausea/Vomiting Potassium Chloride (Klor-Con 10) 10 meq PO BID-[facility] Last Admin: 05/24/18 09:13 Dose: 10 meq Rosuvastatin Calcium (Crestor) 40 mg PO [facility] Last Admin: 05/23/18 20:26 Dose: 40 mg Venlafaxine HCl (Effexor Xr) 150 mg PO DAILY [facility] Last Admin: 05/24/18 09:13 Dose: 150 mg
[2018-05-24] MEDS: Sodium Chloride 0.9% 1,000 ML IV SCH ×2 (16:08→19:52)
[2018-05-24] MEDS: HYDROcodone/Acetaminophen 5/325 mg Tablet PO PRN (17:57)
[2018-05-24] MEDS: Rosuvastatin 20 MG TAB PO SCH (19:50)
[2018-05-24] MEDS: Insulin Glargine 10 UNITS in Pre-Filled Syringe 1 EACH SC SCH (19:51)
[2018-05-25] MEDS: Acetaminophen 325 MG TAB PO SCH ×3 (00:02→12:11)
[2018-05-25] MEDS: Piperacillin/Tazobactam 3.375 GM in Sodium Chloride 0.9% 100 ML IVPB SCH ×3 (00:02→08:19)
[2018-05-25] MEDS: Vancomycin HCl 1.5 GM in Sodium Chloride 0.9% 250 ML 300 ML IVPB SCH (01:41)
[2018-05-25 05:02] LABS: #Eosinphils 0.3 thou/uL (0.0-0.7); #Lymphocytes 1.8 thou/uL (1.20-3.40); #Monocytes 0.5 thou/uL (0.11-0.59); %Basophils 0.6 % (0.0-1.0); %Eosinophils 5.3 % (0.0-10.0); %Lymphocytes 31.8 % (21.0-51.0); %Monocytes 9.3 % (0.0-10.0); Hemoglobin 12.4 g/dL (12.0-16.0); Mean Corpuscular Hemoglobin 29.5 pg (27.0-31.0); Mean Corpuscular Volume 92.2 fL (78.0-98.0); Mean Platelet Volume 7.2 fL (7.4-10.4); Platelet Count 247 thou/uL (130-400); RBC Distribution Width 12.2 % (11.5-14.5); Red Blood Cell (RBC) Count 4.19 mill/uL (4.20-5.40); White Blood Cell (WBC) Count 5.6 thou/uL (4.8-10.8)
[2018-05-25] MEDS: Levothyroxine 175 MCG TAB PO SCH (05:14)
[2018-05-25 05:25] LABS: Anion Gap 13 mmol/L (10-20); BUN (Urea Nitrogen) 13 mg/dL (9.8-20.1); Calc. Creatinine Clearance 163 mL/min (70-130); Calcium 9.2 mg/dL (7.8-10.44); Carbon Dioxide 26 mmol/L (23-31); Chloride 103 mmol/L (98-107); Estimated GFR-MDRD 66; Glucose 150 mg/dL (80-115); Potassium 3.6 mmol/L (3.5-5.1); Sodium 138 mmol/L (136-145)
[2018-05-25 07:48] VITALS: BP 171/82; TEMP 98.1
[2018-05-25] MEDS: hydrALAZINE 10 MG TAB PO SCH (08:16)
[2018-05-25] MEDS: Losartan 25 MG TAB PO SCH (08:17)
[2018-05-25] MEDS: Hydrochlorothiazide 25 MG TAB PO SCH (08:17)
[2018-05-25] MEDS: Enoxaparin Sodium 30 MG/0.3 ML SYRINGE SC SCH (08:17)
[2018-05-25] MEDS: Famotidine 20 MG TAB PO SCH (08:17)
[2018-05-25] MEDS: metFORMIN 500 MG TAB PO SCH (08:18)
[2018-05-25] MEDS: Potassium Chloride 10 MEQ TAB PO SCH (08:18)
[2018-05-25] MEDS: Venlafaxine HCl XR 150 MG CAP PO SCH (08:18)
[2018-05-25] MEDS: glipiZIDE 10 MG TAB PO SCH (08:18)
[2018-05-25] MEDS: Amlodipine 5 MG TAB PO SCH (08:19)
[2018-05-25] MEDS: Aspirin 81 mg Enteric Coated Tablet PO SCH (08:19)
[2018-05-25 11:10] LABS: Vancomycin, Trough 22.8 ug/mL
[2018-05-25] MEDS ORDERED: Vancomycin HCl 1.25 GM in Sodium Chloride 0.9% 250 ML 250 ML IVPB SCH (12:00)
[2018-05-25] MEDS: HYDROcodone/Acetaminophen 5/325 mg Tablet PO PRN (12:11)
[2018-05-25] MEDS ORDERED: Clindamycin 150 MG CAP PO SCH (14:00)
--- NOTE | 2018-05-26 04:55 | DIS ---
DATE OF ADMISSION: 05/20/2018 DATE OF DISCHARGE: 05/25/2018 PRIMARY CARE PROVIDER: Dr. Leonel Payne. DISCHARGE DIAGNOSES: 1. Sepsis. 2. Urinary tract infection causing sepsis. 3. Acute panniculitis. 4. Hypokalemia. DISCHARGE MEDICATIONS: In addition to her home medications as dictated by Dr. Arredondo on history and physical dated 05/20/2018, she is being discharged on clindamycin 300 mg three times a day for one more week. CONDITION OF THE PATIENT ON THE DAY OF DISCHARGE: Stable. I assessed Ms. Laird on the day of discharge. She denies any chest pain or shortness of breath. Vital signs are stable. S1 and S2 are heard, regular. Lungs are clear to auscultation bilaterally. HOSPITAL COURSE: Ms. Laird is a pleasant 68-year-old lady, who was admitted to [facility] on 05/20/2018, for sepsis secondary to urinary tract infection and acute panniculitis. Please refer to Dr. Arredondo's history and physical note dated 05/20/2018, for further details. She was treated with intravenous antibiotics. Urine cultures grew pansensitive Escherichia coli. The patient improved clinically and has been stepped down to oral antibiotics at the time of discharge. She was evaluated by [facility]. She is being discharged to [facility] for further management. Many thanks for allowing me to participate in your patient's care. Please feel free to contact me with any questions or concerns. LABORATORY DATA: On the day of discharge, Ms. Laird has white count 5600, hemoglobin 12.4, platelet count 247,000, normal electrolytes and normal creatinine. DISCHARGE DESTINATION: [facility]. TOTAL AMOUNT OF TIME SPENT COORDINATING THIS DISCHARGE: 32 minutes. Job ID: [id number]
--- NOTE | 2018-05-28 15:21 | EKG ---
Test Reason : Blood Pressure : / mmHG Vent. Rate : 117 BPM Atrial Rate : 117 BPM P-R Int : 156 ms QRS Dur : 064 ms QT Int : 318 ms P-R-T Axes : 038 -24 017 degrees QTc Int : 443 ms Sinus tachycardia Minimal voltage criteria for LVH, may be normal variant Inferior infarct , age undetermined Anterior infarct , age undetermined No STEMI Abnormal ECG Confirmed by BELLO Ortega, LEONARDO ([id number]), script editor MAXWELL [place] ([id number]) on 05/28/2018 3:21:09 PM Referred By: Confirmed By:LEONARDO MONSALVE M.D.
== END 2018-05-25 16:23 | disposition home or self-care (01) | DRG 872 ==
LOC: ERS 02:46 → ERHOLD 03:50 → 2NO 04:12 → T4-B 05-22 17:08
PROVIDERS: ADMIT Internal Medicine; ATTEND Internal Medicine
DX: A41.51 Sepsis due to Escherichia coli [E. coli] (principal); N39.0 Urinary tract infection, site not specified; F32.2 Major depressive disorder, single episode, severe without psychotic features; Z68.43 Body mass index [BMI] 50.0-59.9, adult; Z66 Do not resuscitate; M79.7 Fibromyalgia; M19.90 Unspecified osteoarthritis, unspecified site; E11.9 Type 2 diabetes mellitus without complications; E87.6 Hypokalemia; E03.9 Hypothyroidism, unspecified; E78.00 Pure hypercholesterolemia, unspecified; I10 Essential (primary) hypertension; E66.01 Morbid (severe) obesity due to excess calories; M79.3 Panniculitis, unspecified; Z88.8 Allergy status to other drugs, medicaments and biological substances; Z79.82 Long term (current) use of aspirin; Z79.84 Long term (current) use of oral hypoglycemic drugs; Z79.4 Long term (current) use of insulin; Z79.899 Other long term (current) drug therapy
CPT/HCPCS: 36415; 36416; 51702; 80048; 80053; 80202; 81003; 81015; 83605; 85025; 87040; 87077; 87086; 87186; 93005; 94760; 96361; 96365; 96366; 96375; A4353; J1650; J1825; J1885; J2543; J3370; J7050; S0028

== ENCOUNTER 2022-11-02 19:04 | Inpatient (IN) | payer MEDICARE, MEDICAID ==
[2022-11-02 20:25] VITALS: BMI 62.4
[2022-11-02] MEDS ORDERED: HumaLOG 300 UNITS/3 ML VIAL SC PRN (21:10)
[2022-11-02] MEDS ORDERED: Dextrose 50% Abboject 50 ML SYRINGE SLOW IVP PRN (21:10)
[2022-11-02] MEDS ORDERED: Acetaminophen 325 MG TAB PO PRN (21:10)
[2022-11-02] MEDS ORDERED: Glucagon 1 MG/ML KIT IM PRN (21:10)
[2022-11-02] MEDS ORDERED: Dextrose 5% in Water 1,000 ML IV PRN (21:10)
[2022-11-02] MEDS ORDERED: Ondansetron ODT 4 MG TAB PO PRN (21:10)
[2022-11-02] MEDS ORDERED: Clotrimazole 1 % Cream 30 GM TUBE TOP PRN (21:15)
[2022-11-02] MEDS ORDERED: Pharmacy to Dose : VANC/ABX'S IVPB PRN (21:36)
[2022-11-02] MEDS ORDERED: Apixaban 5 MG TAB PO SCH (21:45)
[2022-11-02] MEDS ORDERED: busPIRone HCl 10 MG TAB PO SCH (21:45)
[2022-11-02] MEDS ORDERED: Carvedilol 6.25 MG TAB PO SCH (21:45)
[2022-11-02] MEDS ORDERED: Sodium Chloride 0.9% 1,000 ML IV SCH (21:45)
[2022-11-02] MEDS: traMADol HCl 50 MG TAB PO PRN (21:59)
[2022-11-02] MEDS: VANCOMYCIN 1.75 GM/500 ML BAG 1.75 GM in Premix Bag 1 BAG IVPB SCH (22:14)
[2022-11-03] MEDS: Cefepime 1 GM in Sodium Chloride 0.9% 100 ML IVPB SCH ×2 (00:49→12:55)
[2022-11-03 05:02] LABS: #Basophils 0.1 thou/uL (0.0-0.2); #Eosinphils 0.1 thou/uL (0.0-0.7); #Monocytes 0.9 thou/uL (0.11-0.59); #Neutrophils 9.9 thou/uL (1.40-6.50); %Basophils 0.5 % (0.0-1.0); %Eosinophils 0.9 % (0.0-10.0); %Lymphocytes 13.4 % (21.0-51.0); %Monocytes 6.7 % (0.0-10.0); %Neutrophils 77.9 % (42.0-75.0); Hematocrit 36.7 % (36.0-47.0); Hemoglobin 11.8 g/dL (12.0-16.0); Mean Corpuscular HGB CONC 32.2 g/dL (32.0-36.0); Mean Corpuscular Hemoglobin 29.6 pg (27.0-31.0); Mean Corpuscular Volume 92.2 fl (78.0-98.0); Platelet Count 170 10x3/uL (130-400); RBC Distribution Width 14.2 % (11.5-14.5); Red Blood Cell (RBC) Count 3.98 mill/uL (4.20-5.40); White Blood Cell (WBC) Count 12.7 10x3/uL (4.8-10.8)
[2022-11-03] MEDS: Levothyroxine 150 MCG TAB PO SCH (05:03)
[2022-11-03 05:10] LABS: Hemoglobin A1c 9.3 % (4.0-6.0)
[2022-11-03 05:32] LABS: Anion Gap 11 mmol/L (10-20); BUN (Urea Nitrogen) 25 mg/dL (9.8-20.1); Calc. Creatinine Clearance 108 mL/min (70-130); Calcium 8.3 mg/dL (7.8-10.44); Carbon Dioxide 24 mmol/L (23-31); Chloride 103 mmol/L (98-107); Estimated GFR 44; Glucose 208 mg/dL (80-115); Potassium 3.8 mmol/L (3.5-5.1); Sodium 134 mmol/L (136-145)
[2022-11-03] MEDS: HumaLOG 300 UNITS/3 ML VIAL SC PRN ×3 (06:46→17:25)
[2022-11-03] MEDS ORDERED: Vancomycin 1 GM in Premix Bag 1 BAG IVPB SCH (09:00)
[2022-11-03] MEDS ORDERED: Rosuvastatin 20 MG TAB PO SCH (09:00)
[2022-11-03] MEDS ORDERED: Rosuvastatin 10 MG TAB PO SCH (09:00)
[2022-11-03] MEDS: glipiZIDE 10 MG TAB PO SCH ×2 (09:11→17:25)
[2022-11-03] MEDS: Carvedilol 25 MG TAB PO SCH ×2 (09:11→17:24)
[2022-11-03] MEDS: Venlafaxine HCl XR 150 MG CAP PO SCH (09:11)
[2022-11-03] MEDS: busPIRone HCl 10 MG TAB PO SCH ×2 (09:11→21:55)
[2022-11-03] MEDS: Apixaban 5 MG TAB PO SCH ×2 (09:11→21:56)
[2022-11-03] MEDS: Amlodipine 5 MG TAB PO SCH (09:12)
[2022-11-03] MEDS: Insulin Glargine 30 UNITS/0.3 ML VIAL SC SCH ×2 (09:12→21:56)
[2022-11-03] MEDS: Alogliptin 6.25 MG TAB PO SCH (09:12)
[2022-11-03] MEDS: Aspirin 81 mg Enteric Coated Tablet PO SCH (09:12)
[2022-11-03] MEDS: Ketoconazole 2% Cream 15 gm Tube TOP SCH (09:13)
[2022-11-03] MEDS ORDERED: Cefepime 1 GM in Sodium Chloride 0.9% 100 ML IVPB SCH (10:00)
[2022-11-03] MEDS: VANCOMYCIN 1.75 GM/500 ML BAG 1.75 GM in Premix Bag 1 BAG IVPB SCH (21:55)
[2022-11-04] MEDS: Cefepime 1 GM in Sodium Chloride 0.9% 100 ML IVPB SCH (00:42)
[2022-11-04 05:06] LABS: #Eosinphils 0.2 thou/uL (0.0-0.7); #Monocytes 0.7 thou/uL (0.11-0.59); #Neutrophils 7.2 thou/uL (1.40-6.50); %Basophils 0.4 % (0.0-1.0); %Eosinophils 2.4 % (0.0-10.0); %Lymphocytes 13.8 % (21.0-51.0); %Monocytes 7.4 % (0.0-10.0); %Neutrophils 75.4 % (42.0-75.0); Hematocrit 39.8 % (36.0-47.0); Hemoglobin 12.4 g/dL (12.0-16.0); Mean Corpuscular HGB CONC 31.2 g/dL (32.0-36.0); Mean Corpuscular Hemoglobin 29.2 pg (27.0-31.0); Mean Corpuscular Volume 93.6 fl (78.0-98.0); Mean Platelet Volume 10.2 fL (7.4-10.4); Platelet Count 193 10x3/uL (130-400); Red Blood Cell (RBC) Count 4.25 mill/uL (4.20-5.40); White Blood Cell (WBC) Count 9.6 10x3/uL (4.8-10.8)
[2022-11-04 05:29] LABS: Anion Gap 12 mmol/L (10-20); BUN (Urea Nitrogen) 20 mg/dL (9.8-20.1); CRP (Inflammatory) 15.51 mg/dL (= or < 0.5); Calc. Creatinine Clearance 123 mL/min (70-130); Carbon Dioxide 21 mmol/L (23-31); Chloride 106 mmol/L (98-107); Estimated GFR 52; Glucose 185 mg/dL (80-115); Potassium 4.1 mmol/L (3.5-5.1); Sodium 135 mmol/L (136-145)
[2022-11-04] MEDS: Levothyroxine 150 MCG TAB PO SCH (05:33)
[2022-11-04] MEDS: HumaLOG 300 UNITS/3 ML VIAL SC PRN ×2 (05:34→17:14)
[2022-11-04] MEDS: traMADol HCl 50 MG TAB PO PRN ×2 (10:21→22:46)
[2022-11-04] MEDS: Insulin Glargine 30 UNITS/0.3 ML VIAL SC SCH ×2 (10:23→22:47)
[2022-11-04] MEDS: Ketoconazole 2% Cream 15 gm Tube TOP SCH (10:23)
[2022-11-04] MEDS: Apixaban 5 MG TAB PO SCH ×2 (10:24→22:47)
[2022-11-04] MEDS: Venlafaxine HCl XR 150 MG CAP PO SCH (10:24)
[2022-11-04] MEDS: Carvedilol 25 MG TAB PO SCH ×2 (10:24→16:35)
[2022-11-04] MEDS: Aspirin 81 mg Enteric Coated Tablet PO SCH (10:25)
[2022-11-04] MEDS: Alogliptin 6.25 MG TAB PO SCH (10:25)
[2022-11-04] MEDS: Amlodipine 5 MG TAB PO SCH (10:26)
[2022-11-04] MEDS: glipiZIDE 10 MG TAB PO SCH ×2 (10:26→16:35)
[2022-11-04] MEDS: busPIRone HCl 10 MG TAB PO SCH ×2 (10:27→22:47)
[2022-11-04] MEDS: Rosuvastatin 20 MG TAB PO SCH (12:15)
[2022-11-04] MEDS: Cefepime 2 GM in Sodium Chloride 0.9% 100 ML IVPB SCH ×2 (12:18→22:48)
[2022-11-04 21:26] LABS: Vancomycin, Trough 12.8 ug/mL
[2022-11-05] MEDS: VANCOMYCIN 1.75 GM/500 ML BAG 1.75 GM in Premix Bag 1 BAG IVPB SCH (00:38)
[2022-11-05] MEDS: Levothyroxine 150 MCG TAB PO SCH (05:38)
[2022-11-05 09:53] VITALS: BP 177/70; TEMP 98.4
[2022-11-05] MEDS: Insulin Glargine 30 UNITS/0.3 ML VIAL SC SCH (09:53)
[2022-11-05] MEDS: Alogliptin 6.25 MG TAB PO SCH (09:53)
[2022-11-05] MEDS: busPIRone HCl 10 MG TAB PO SCH (09:53)
[2022-11-05] MEDS: Amlodipine 5 MG TAB PO SCH (09:53)
[2022-11-05] MEDS: Apixaban 5 MG TAB PO SCH (09:54)
[2022-11-05] MEDS: Venlafaxine HCl XR 150 MG CAP PO SCH (09:55)
[2022-11-05] MEDS: glipiZIDE 10 MG TAB PO SCH (09:55)
[2022-11-05] MEDS: Carvedilol 25 MG TAB PO SCH (09:55)
[2022-11-05] MEDS: Aspirin 81 mg Enteric Coated Tablet PO SCH (09:55)
[2022-11-05] MEDS: Rosuvastatin 20 MG TAB PO SCH (09:56)
[2022-11-05] MEDS: traMADol HCl 50 MG TAB PO PRN (10:57)
[2022-11-05] MEDS: Ketoconazole 2% Cream 15 gm Tube TOP SCH (10:58)
== END 2022-11-05 11:04 | disposition home or self-care (01) | DRG 872 ==
LOC: 2NO 19:04
PROVIDERS: ADMIT Family Medicine; ATTEND Hospitalist
DX: A40.1 Sepsis due to streptococcus, group B (principal); L97.429 Non-pressure chronic ulcer of left heel and midfoot with unspecified severity; N10 Acute pyelonephritis; L03.311 Cellulitis of abdominal wall; Z68.44 Body mass index [BMI] 60.0-69.9, adult; R00.0 Tachycardia, unspecified; M79.7 Fibromyalgia; E78.5 Hyperlipidemia, unspecified; E03.9 Hypothyroidism, unspecified; E66.01 Morbid (severe) obesity due to excess calories; I48.0 Paroxysmal atrial fibrillation; L21.9 Seborrheic dermatitis, unspecified; K21.9 Gastro-esophageal reflux disease without esophagitis; K42.9 Umbilical hernia without obstruction or gangrene; F32.A Depression, unspecified; I12.9 Hypertensive chronic kidney disease with stage 1 through stage 4 chronic kidney disease, or unspecified chronic kidney disease; E11.22 Type 2 diabetes mellitus with diabetic chronic kidney disease; M79.3 Panniculitis, unspecified; N18.30 Chronic kidney disease, stage 3 unspecified; G47.33 Obstructive sleep apnea (adult) (pediatric); Z79.899 Other long term (current) drug therapy; Z88.8 Allergy status to other drugs, medicaments and biological substances; Z79.84 Long term (current) use of oral hypoglycemic drugs; Z90.49 Acquired absence of other specified parts of digestive tract; Z90.89 Acquired absence of other organs; Z82.49 Family history of ischemic heart disease and other diseases of the circulatory system
CPT/HCPCS: 36415; 36416; 80048; 80202; 83036; 83735; 85025; 86140; 93005; 93010; J0692; J1815; J3370; J3490; J7050

== ENCOUNTER 2023-07-13 04:50 | Emergency (ER) | payer MEDICARE, OTHER ==
[2023-07-13] MEDS ORDERED: Carvedilol 6.25 MG TAB ONE (09:52)
[2023-07-13] MEDS ORDERED: traMADol HCl 50 MG TAB ONE (09:55)
== END 2023-07-13 09:22 ==
LOC: ERS 09:22
DX: K43.9 Ventral hernia without obstruction or gangrene (principal); L03.311 Cellulitis of abdominal wall; I10 Essential (primary) hypertension; E11.9 Type 2 diabetes mellitus without complications; E78.5 Hyperlipidemia, unspecified; E03.9 Hypothyroidism, unspecified; Z79.01 Long term (current) use of anticoagulants; Z79.4 Long term (current) use of insulin; Z79.84 Long term (current) use of oral hypoglycemic drugs; Z79.899 Other long term (current) drug therapy
CPT/HCPCS: 93005; 93010

== ENCOUNTER 2023-09-07 06:27 | Day surgery (SDC) | payer MEDICARE, MEDICAID ==
[2023-09-03 13:19] VITALS: BMI 58.6
[2023-09-07] MEDS ORDERED: Lidocaine 2% PF 5 ML VIAL ONE (08:48)
[2023-09-07] MEDS ORDERED: PROPOFOL 80 ML ONE (08:48)
[2023-09-07] MEDS ORDERED: PROPOFOL 20 ML ONE (09:39)
[2023-09-07] MEDS ORDERED: fentaNYL 50 mcg/mL 1 mL Vial ONE (10:17)
[2023-09-07] MEDS ORDERED: Ondansetron PF 4 MG/2 ML Vial ONE (10:17)
== END 2023-09-07 11:24 | disposition home or self-care (01) ==
LOC: SDC 06:27
PROVIDERS: ATTEND Internal Medicine
PROC: 0DBL8ZZ Excision of Transverse Colon, Via Natural or Artificial Opening Endoscopic (ICD-10-PCS; principal; 2023-09-07)
PROC: 0DB98ZX Excision of Duodenum, Via Natural or Artificial Opening Endoscopic, Diagnostic (ICD-10-PCS; 2023-09-07)
PROC: 0DB68ZX Excision of Stomach, Via Natural or Artificial Opening Endoscopic, Diagnostic (ICD-10-PCS; 2023-09-07)
DX: D12.3 Benign neoplasm of transverse colon (principal); K31.89 Other diseases of stomach and duodenum; K64.8 Other hemorrhoids; K57.30 Diverticulosis of large intestine without perforation or abscess without bleeding; K21.00 Gastro-esophageal reflux disease with esophagitis, without bleeding; K63.89 Other specified diseases of intestine; K25.9 Gastric ulcer, unspecified as acute or chronic, without hemorrhage or perforation; K22.10 Ulcer of esophagus without bleeding; K29.80 Duodenitis without bleeding; D50.9 Iron deficiency anemia, unspecified; K59.00 Constipation, unspecified; E11.22 Type 2 diabetes mellitus with diabetic chronic kidney disease; I12.9 Hypertensive chronic kidney disease with stage 1 through stage 4 chronic kidney disease, or unspecified chronic kidney disease; N18.9 Chronic kidney disease, unspecified; E78.5 Hyperlipidemia, unspecified; E03.9 Hypothyroidism, unspecified; I48.91 Unspecified atrial fibrillation; Z79.01 Long term (current) use of anticoagulants; Z79.890 Hormone replacement therapy; Z79.899 Other long term (current) drug therapy; Z88.8 Allergy status to other drugs, medicaments and biological substances; Z90.89 Acquired absence of other organs; Z90.49 Acquired absence of other specified parts of digestive tract
CPT/HCPCS: 43239; 45385; 82962; J2001; J2405; J2704; J3010; 36416; 88305